=== PATIENT | male | born 1965 | race Caucasian/White ===

== ENCOUNTER 2019-04-13 09:12 | Emergency (ER) | payer BC, OTHER, SELFPAY ==
[2019-04-13] VITALS (7 sets, daily range): BP systolic 124–162; BP diastolic 90–109; PULSE 95–119; RESP 16–18; TEMP 36.3; O2SAT 93–96; BMI 28.3
--- NOTE | 2019-04-13 09:29 | ED.VIS.GEN ---
History of Present Illness Chief Complaint: Suicidal Informant: Patient Onset: Days Current Severity: Mild Narrative: Presents from nursing home related to being suicidal while there. Apparently he indicates he was sent to nursing home over the weekend related to a domestic type dispute see the police records. No additional details available, the patient indicates while there he verbalized the concerned that he was going to hang himself, suicide protocol is followed he was seen by mental health experts at nursing home, he was discharged today from nursing home to home in mental health recommended to be brought to the emergency department to continue his mental health evaluation Indicates he has history of open heart surgery hypertension all of which have been stable but has not had his meds for days he has no suicidal ideation homicidal ideation he has no complaints of any kind he indicates he simply is anxious and simply wants to be discharged home but does understand that mental health services coming to see him to complete his mental health evaluation he is willing to wait for that Further indicates he has all his home meds with him in the personal belongings the police brought with them but has not had any of his meds since Saturday and he will be given his medications At this time he has no suicidal homicidal ideation or physical complaints of any time he simply waiting undergo and complete his mental health evaluation he indicates history of anxiety he is followed through the [place] for anxiety and depression he is never been suicidal never been admitted for mental health purposes Past Medical History - Allergies and Home Meds Allergies/Adverse Reactions: Allergies No Known Allergies Allergy (Verified 04/13/19 09:13) Primary Care Physician: [facility],[place] [Primary Care Provider] - Past Medical History: - Review of Systems ROS: - Clues as above General: Denies: Chills, Fever, Sweats Eyes: Denies: Visual changes - bilaterally, Diplopia ENT: Denies: Rhinorrhea, Sore throat Cardiovascular: Denies: Chest pain, Palpitations Respiratory: Denies: Dyspnea, Cough, Dyspnea on exertion Gastrointestinal: Denies: Abdominal pain, Nausea, Vomiting, Diarrhea, Melena, Hematochezia Genitourinary: Denies: Dysuria, Hematuria, Frequency Musculoskeletal: Denies: Back pain, Extremity Pain Skin: Denies: Rash, Wounds Neurological: Denies: Headache, Weakness, Numbness Physical Exam Vital Signs/Narrative: Vital Signs Temp Pulse Resp BP Pulse Ox 04/13/19 09:13 97.4 F L 119 H 17 162/109 H 96 General: Well nourished, Well developed, No Acute Distress Head: Normocephalic, Atraumatic Eyes: Perrl, EOMI ENT: Moist mucous membranes, No rhinorrhea Neck: Supple, Nontender Cardiovascular: Regular rate, Regular rhythm, No murmurs Respiratory: No distress, CTA bilaterally, Chest nontender Abdomen: Soft, Nontender, Nondistended, Normal bowel sounds Back: Nontender, Normal Inspection Extremities: Nontender, No edema Skin: Normal color, No rash Neurological: Alert, Oriented x3, Cranial nerves II-XII grossly intact, Normal Strength, Normal Sensation Psychological: Normal affect, Normal Mood Diagnostic/Tx/Re-eval - Medical Decision Making Is resting company the bed he does seem anxious and nervous he has no complaints of any kind this time we will obtain medical screening we will provide him his daily meds and we have asked mental health services to complete the evaluation his disposition will be determined by mental health services Position pending mental health evaluation Final impression Reported suicidal ideation, ED Disposition - Plan for ED Patient: [facility] [Primary Care Provider] -
[2019-04-13 09:39] LABS: Absolute Lymphocyte Count 2.58 X10^3/uL (0.83-4.51); Absolute Neutrophil Count 5.6 X10^3/uL (2.0-7.7); Basophil# 0.07 X10^3/uL; Basophil% 0.8 % (0-1); Eosinophil# 0.07 X10^3/uL; Eosinophils% 0.8 % (0-5); Hemoglobin 17.4 g/dL (13.0-16.5); Lymphocyte # 2.58 X10^3/ul (4.0); Lymphocyte % 28.2 % (19-41); Mean Corp Hgb Conc 34.1 g/dL (32-36); Mean Corpuscular Hgb 30.6 pg (27.0-32.0); Mean Corpuscular Volume 89.6 fL (80-94); Mean Platelet Vol. 9.5 fl (6.2-12.0); Monocyte# 0.79 X10^3/uL; Monocyte% 8.6 % (0-10); NRBC Flagged by Analyzer 0 % (0-5); Neutrophil % 61.2 % (47-70); Platelet Count 274 K/mm3 (150-450); RBC Distribution Width CV 12.1 % (11.6-14.6); RBC Distribution Width SD 39.3 fl (35.1-43.9); Red Blood Count 5.69 M/mm3 (4.6-6.2); White Blood Count 9.2 K/mm3 (4.4-11.0)
[2019-04-13 09:52] LABS: Anion Gap 7 (5-15); BUN 21 mg/dL (7-18); BUN/Creat Ratio 19.4 RATIO (10-20); Calcium,Total 9.9 mg/dL (8.5-10.1); Chloride 107 mmol/L (98-107); Creatinine, Serum 1.08 mg/dL (0.70-1.30); EST Glomerular Filtration Rate 75 mL/min (>60); Est Glom Filt Rate - Afr Amer 91 mL/min (>60); Estimated Creatinine Clearance 67.23 ml/min; Glucose 120 mg/dL (74-106); Potassium 3.7 mmol/L (3.5-5.1); Sodium Level 141 mmol/L (136-145)
[2019-04-13 10:05] LABS: Alcohol, Blood (Medical)-Serum < 3.0 mg/dL
[2019-04-13 10:46] LABS: Amphetamine Urine VISTA NEGATIVE (<1000 ng/mL); Barbiturate Urine VISTA NEGATIVE (< 200 ng/mL); Benzodiazepine Urine VISTA NEGATIVE (< 200 ng/mL); Cocaine Urine VISTA NEGATIVE (< 300 ng/mL); Ecstacy Urine VISTA POSITIVE (< 500 ng/mL); Methadone Urine VISTA NEGATIVE (< 300 ng/mL); PCP Urine VISTA NEGATIVE (< 25 ng/mL); THC Urine VISTA NEGATIVE (< 50 ng/mL); Vista UDS pH Range 5
[2019-04-13] MEDS: Metoprolol(XL)Succ 25 MG Tablet PO (11:20)
[2019-04-13] MEDS: Citalopram 20 MG Tablet PO (11:20)
[2019-04-13] MEDS: Aspirin 81 MG TAB.CHEW PO (11:21)
[2019-04-13] MEDS: Pantoprazole Sodium 40 MG Tablet PO (11:21)
== END 2019-04-13 18:15 ==
PROVIDERS: Emergency Provider Emergency Medicine
DX: R45.851 Suicidal ideations (principal); I10 Essential (primary) hypertension; F41.9 Anxiety disorder, unspecified; F32.9 Major depressive disorder, single episode, unspecified; Z79.899 Other long term (current) drug therapy
CPT/HCPCS: 80048; 80307; 80320; 85025; 99284; G0480